=== PATIENT | female | born 1990 | race Caucasian/White ===

== ENCOUNTER 2018-06-29 14:05 | Emergency (ER) | payer BC ==
--- NOTE | 2018-06-29 14:35 | EDM.PDOC ---
ED HPI GENERAL MEDICAL PROBLEM - General Chief Complaint: Upper Extremity Injury/Pain Stated Complaint: BROKEN FINGER Time Seen by Provider: 06/29/18 14:14 Source of Information: Reports: Patient History Limitations: Reports: No Limitations - History of Present Illness INITIAL COMMENTS - FREE TEXT/NARRATIVE: The patient was at a rodeo today and her daughter was ridding and she went to help her off of the horse. The horse saw the helmet the patient was holding from her daughter and the horse pulled back and the patient pulled back and she noticed her right 4th finger was angled off to the ulnar side. She quickly put it back but she still has pain and mild deformity. She is left handed. Some medics at the rodeo splinter her finger. Onset: Sudden Duration: Hour(s): Location: Reports: Upper Extremity, Right (4th finger) Quality: Reports: Sharp Severity: Moderate Improves with: Reports: Immobilization Worsens with: Reports: Movement Associated Symptoms: Reports: No Other Symptoms right 4th finger Pain Score (Numeric/FACES): 7 - Related Data Allergies Allergy/AdvReac Type Severity Reaction Status Date / Time No Known Allergies Allergy Verified 06/29/18 14:12 Home Meds: Home Meds Escitalopram [Lexapro] 10 mg PO DAILY 06/29/18 [History] Hydrocodone/Acetaminophen [Hydrocodon-Acetaminophen 5-325] 1 - 2 each PO Q6HR PRN #20 tablet 06/29/18 [Rx] Past Medical History - Past Health History Medical/Surgical History: Denies Medical/Surgical History Other Musculoskeletal History: broken shoulder, clavicle, jaw Psychiatric History: Reports: Anxiety Social & Family History - Family History Family Medical History: Noncontributory - Tobacco Use Smoking Status *Q: Never Smoker - Caffeine Use Caffeine Use: Reports: Energy Drinks - Recreational Drug Use Recreational Drug Use: No Review of Systems - Review of Systems Review Of Systems: See Below Constitutional: Reports: No Symptoms Eyes: Reports: No Symptoms Ears: Reports: No Symptoms Nose: Reports: No Symptoms Mouth/Throat: Reports: No Symptoms Respiratory: Reports: No Symptoms Cardiovascular: Reports: No Symptoms GI/Abdominal: Reports: No Symptoms Genitourinary: Reports: No Symptoms Musculoskeletal: Reports: Other (Right 4th finger injury) ED EXAM, GENERAL - Physical Exam Exam: See Below Exam Limited By: No Limitations General Appearance: Alert, No Apparent Distress Ears: Normal External Exam Nose: Normal Inspection Head: Atraumatic, Normocephalic Neck: Normal Inspection Respiratory/Chest: No Respiratory Distress Extremities: Other (Pain upon palpation to the DIP joint of the right 4th finger with slight deformity. Good capillary refill distally and good sensation.) ED TRAUMA EXTREMITY PROCEDURES - Splinting Right 4th Digit Splint Site: Right 4th digit Pre-Procedure NV Status: Normal Post-Procedure NV Status: Normal Splint Material: Aluminum-Foam Splint Design: Other (Finger) Applied & Form Fitted By: Provider Provider Post-Splint Application NV Check: NV Status Normal, Good Position Complications: No Course - Vital Signs Last Recorded V/S: Last Vital Signs Temp 97.1 F 06/29/18 14:08 Pulse 97 06/29/18 14:08 Resp 18 06/29/18 14:08 BP 133/91 H 06/29/18 14:08 Pulse Ox 98 06/29/18 14:08 - Orders/Labs/Meds Orders: Active Orders 24 hr Category Date Time Status Fingers Fourth Digit Rt F8 [CR] Stat Exams 06/29/18 14:25 Taken Meds: Medications Discontinued Medications Generic Name Dose Route Start Last Admin Trade Name Freq PRN Reason Stop Dose Admin Hydrocodone Bitart/Acetaminophen 2 tab 06/29/18 15:03 06/29/18 15:39 Olin 325-5 Mg PO 06/29/18 15:04 2 tab ONETIME ONE Administration Lidocaine HCl 50 ml 06/29/18 15:03 06/29/18 15:40 Xylocaine 1% INJECT 06/29/18 15:04 50 ml ONETIME ONE Administration - Re-Assessments/Exams Free Text/Narrative Re-Assessment/Exam: 06/29/18 15:55 She has a fractured 4th finger. I feel I need to try to reduce her finger. I used 2ccs of 1% lidocaine to do a finger block. With good anaesthesia obtained I attempted to reduce her finger fracture. Her finger was lined up better but it did not reduce much. I splinted her with an aluminum splint and gave her some hydrocodone for pain. Departure - Departure Time of Disposition: 16:00 Disposition: Home, Self-Care 01 Condition: Good Clinical Impression: Finger fracture, right Qualifiers: Encounter type: initial encounter Finger: ring finger Fracture type: closed Phalanx: middle Fracture alignment: displaced Qualified Code(s): S62.624A - Displaced fracture of middle phalanx of right ring finger, initial encounter for closed fracture - Discharge Information *PRESCRIPTION DRUG MONITORING PROGRAM REVIEWED*: No *COPY OF PRESCRIPTION DRUG MONITORING REPORT IN PATIENT DORIS: No Prescriptions: Hydrocodone/Acetaminophen [Hydrocodon-Acetaminophen 5-325] 1 - 2 each PO Q6HR PRN #20 tablet PRN Reason: Pain Referrals: PCP,None [Primary Care Provider] - Kb Landon MD [Consulting Physician] - 1 Week Forms: ED Department Discharge Additional Instructions: Ice your finger for 15 minutes 3 times per day for 2 days. Elevate your finger above your heart as much as you can for 2 days. Take motrin or tylenol for pain. If that does not work you can try some hydrocosone. Follow up with Dr Landon at [facility] in [place] next week. They may also come to [place]. Please return if you are worse. - My Orders Last 24 Hours: My Active Orders 06/29/18 14:25 Fingers Fourth Digit Rt F8 [CR] Stat - Assessment/Plan Last 24 Hours: My Active Orders 06/29/18 14:25 Fingers Fourth Digit Rt F8 [CR] Stat
[2018-06-29] MEDS ORDERED: Lidocaine 1% 50 ML MDV INJECT ONE (15:03)
[2018-06-29] MEDS ORDERED: Acetaminophen/HYDROcodone 325-5 MG Tab PO ONE (15:03)
--- NOTE | 2018-07-04 09:15 | CR ---
Right fourth finger: Three views of the right fourth finger were obtained. Comparison: No previous study. Comminuted fracture is identified within the middle phalanx of the fourth finger. Articular extension is seen within the PIP joint. Mild displacement is noted. Diffuse soft tissue swelling is seen. No additional bony abnormality is identified. Impression: 1. Mildly comminuted and displaced middle phalanx fracture of the right fourth finger. 2. Soft tissue swelling. Diagnostic code #3
== END 2018-06-29 16:13 | disposition home or self-care (01) ==
LOC: JD.ED 14:05
DX: S62.624A Displaced fracture of middle phalanx of right ring finger, initial encounter for closed fracture (principal); X50.9XXA Other and unspecified overexertion or strenuous movements or postures, initial encounter
CPT/HCPCS: 26725; 73140; 99283; A9270; 64450; 99284